=== PATIENT | male | born 1970 | race Caucasian/White ===

== ENCOUNTER 2017-04-05 10:14 | Emergency (ER) | payer BC ==
[2017-04-05 10:43] LABS: Hematocrit 41.5 % (42.0-52.0); Hemoglobin 14.3 gm/dL (13.5-18.0); Mean Cell Volume 95.8 fl (78-100); Mean Corpuscular Hgb Conc 34.5 g/dl (32-36); Mean Platelet Volume 9.9 fl (6.0-9.5); Neutrophil # 7.1 K/mm3 (1.3-6.0); Neutrophil % 71.6 % (42-75.0); Platelet Count 276 K/mm3 (150-450); Red Blood Count 4.33 M/mm3 (4.7-6.0); Red Cell Distribution Width 12.8 % (11.5-14.0); White Blood Count 9.9 K/mm3 (4.0-10.5)
[2017-04-05 10:55] LABS: Albumin * 3.9 gm/dl (3.4-5.0); Anion Gap 13.9 mmol/L (6.8-13.8); BUN/Creatinine Ratio 8.2 (9.0-21.6); Ca. Corrected For Albumin 8.9 mg/dL (8.4-10.2); Calcium * 9.1 mg/dL (7.9-10.9); Carbon Dioxide 26.1 mmol/L (24-32.6)
--- NOTE | 2017-04-05 11:06 | ERNOTE ---
Medical Problem HPI - General Chief Complaint: General Assessment Time Seen by Provider: 04/05/17 10:36 Source: patient Exam Limitations: no limitations - Immun/Allergies/Home Medications Immunizations: IMMUNIZATION HX History of Influenza Vaccine Yes Hx Pneumococcal Vaccination No Allergies/Adverse Reactions: Allergies Sulfa (Sulfonamide Antibiotics) Allergy (Intermediate, Verified 04/05/17 10:24) Other "feels weird" penicillin V potassium [From Pen-Vee K] Allergy (Mild, Verified 04/05/17 10:24) Other unsure Home Medications: HOME MEDICATIONS EPINEPHrine [Epipen 2-Tera] 0.3 mg IM ONCE PRN 11/11/15 [Last Taken Unknown] Pantoprazole Sodium [Protonix] 40 mg PO DAILY 11/11/15 [Last Taken Unknown] - History of Present History Narrative: Patient has had decreased sensation in his left face and arm for about three weeks. First the symptoms were intermittent lasting for a few hours every day. They have been constant over the last three days. He describes tingling and decreased sensation, no motor deficit, mild headache today, no recent trauma, remote head injury in 2012. Over the last few months he has cut down his drinking form 90beer per week to 2-3 per night and more on the weekend, cut down his smoking form two to one pack/day, has not been on hard drugs for a long time, used THC four days ago Review of Systems - Review of Systems Constitutional: Absent: recent illness, fever EYE: Present: blurred vision. Absent: double vision, vision changes Respiratory: Absent: shortness of breath, cough Cardiology: Absent: chest pain, palpitations Gastrointestinal/Abdominal: Absent: nausea, vomiting Genitourinary: Absent: frequency Musculoskeletal: Absent: neck pain Skin: Absent: rash Neurological: Present: See HPI, tingling - Patient's Past Medical History Patient History - Medical: GERD, Other Patient History - Cardiac/Respiratory: No pertinent hx Patient History - Cancer: No Hx of Cancer Patient History - Surgical Procedures: Appendectomy, Cholecystectomy, EGD, Other Patient History - Other: None - Family History Father Family History - Medical: Diabetes Type 2 Family History - Cardiac/Respiratory: Hypertension, Hyperlipidemia Grandfather-Maternal Family History - Medical: , No pertinent hx Family History - Cardiac/Respiratory: No pertinent hx Grandfather-Paternal Family History - Medical: , No pertinent hx Family History - Cardiac/Respiratory: Other Grandmother-Maternal Family History - Medical: , Diabetes Type 2 Family History - Cardiac/Respiratory: CVA/Stroke, Hypertension Grandmother-Paternal Family History - Medical: , Dementia Family History - Cardiac/Respiratory: No pertinent hx Mother Family History - Medical: No pertinent hx Family History - Cardiac/Respiratory: Hypertension - Social History Living Situations: home Abuse History: No History of abuse Psych History: Hx of Anxiety Smoking Status: Current every day smoker Cigarettes Packs Per Day: 1 Alcohol Use: heavy Drug Use: marijuana, other - Immunizations Hx Pneumococcal Vaccination: No History of Influenza Vaccine: Yes Physical Exam - Physical Exam General Appearance: Present: wd/wn, alert, no apparent distress Eye Exam: Normal inspection: bilateral, PERRL: bilateral, EOMI: bilateral Ears, Nose, Throat: Present: normal ENT inspection, normal pharynx Neck: Present: nontender, supple, full range of motion Respiratory: Present: no respiratory distress, normal breath sounds, no accessory muscle use, lungs clear Cardiovascular/Chest: Present: regular rate, rhythm, no murmur Gastrointestinal/Abdominal: Present: normal bowel sounds, nontender, nondistended, soft Extremity Exam: Present: no edema Neurological Exam: Present: alert, oriented, normal mood/affect, no motor/ sensory deficits, 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 - Vital Signs Patient's Vital Signs:: I have reviewed the patient's vital signs. Vital Signs: Vital Signs 04/05/17 04/05/17 10:20 10:34 Temperature 36.9 C Pulse Rate 67 60 Respiratory 12 19 Rate Blood Pressure 146/94 147/88 O2 Sat by Pulse 97 97 Oximetry - EKG EKG: NSR - sinusbradycardia, unchanged from - 02/2015 except rate, other - no acute changes EKG read: Interp. by me - CT/Ultrasound CT/Ultrasound Narrative: CT head: changes in left cerebellar hemisphere - Progress/Reassessment Chief Complaint: General Assessment Progress Note-Subjective: 04/05/17 12:09 discussed test result with patient 04/05/17 12:10 called office for follow up appointment 04/05/17 12:15 discussed with yonis Moscoso to order MRI in her name Departure - Departure Clinical Impression: Paresthesia, Abnormal CT of brain Disposition: Home self-care Condition: Good Instructions: Paresthesia, [id number]-[id number], Form - Excuse from Work, School, or Physical Activity Additional Instructions: follow up for an MRI on the at 08:45 and with Yany Sawyer the next day Referrals: Yany Sawyer, AUDIO/VISUAL OPERATOR [Primary Care Provider] - 04/12/17 2:30 pm
[2017-04-05 12:36] LABS: Cocaine Ur Negative (NEGATIVE); Urine Barbiturate Negative (NEGATIVE); Urine Benzodiazepines Negative (NEGATIVE); Urine Opiates Negative (NEGATIVE); Urine PCP Negative (NEGATIVE); Urine THC Negative (NEGATIVE)
[2017-04-05 12:41] VITALS: BP 119/79
== END 2017-04-05 12:55 | disposition home or self-care (01) ==
LOC: ER 10:14
DX: R20.9 Unspecified disturbances of skin sensation (principal); R94.02 Abnormal brain scan; F17.210 Nicotine dependence, cigarettes, uncomplicated; K21.9 Gastro-esophageal reflux disease without esophagitis

== ENCOUNTER 2017-12-22 10:21 | Emergency (ER) | payer BC ==
[2017-12-22] MEDS ORDERED: NORMAL SALINE 1,000 ML IV ONE ×2 (10:46→12:16)
[2017-12-22] MEDS ORDERED: LORazepam 2 MG/ML DISP.SYRIN IV ONE (10:47)
[2017-12-22] MEDS ORDERED: LORazepam 2 MG/ML DISP.SYRIN ONE (10:58)
[2017-12-22 11:04] LABS: Hemoglobin 14.2 gm/dL (13.5-18.0); Mean Cell Volume 94.8 fl (78-100); Mean Corpuscular Hemoglobin 33.6 pg (27-31); Mean Corpuscular Hgb Conc 35.5 g/dl (32-36); Mean Platelet Volume 10.5 fl (6.0-9.5); Neutrophil # 9.4 K/mm3 (1.3-6.0); Neutrophil % 74.2 % (42-75.0); Platelet Count 253 K/mm3 (150-450); Red Blood Count 4.22 M/mm3 (4.7-6.0); Red Cell Distribution Width 12.3 % (11.5-14.0); White Blood Count 12.6 K/mm3 (4.0-10.5)
[2017-12-22 11:22] LABS: Albumin * 3.5 gm/dl (3.4-5.0); Anion Gap 9.3 mmol/L (6.8-13.8); BUN/Creatinine Ratio 10.5 (9.0-21.6); Bilirubin, Total 0.5 mg/dL (0.0-1.1); CRP 5.9 mg/dL (0.0-0.9); Ca. Corrected For Albumin 8.9 mg/dL (8.4-10.2); Calcium * 8.8 mg/dL (7.9-10.9); Carbon Dioxide 31.4 mmol/L (24-32.6); Potassium 2.7 mmol/L (3.4-4.6); Total Protein 7.4 gm/dL (6.2-8.2); Uric Acid 6.2 mg/dL (2.6-7.2)
[2017-12-22] MEDS ORDERED: KETOROLAC TROMETHAMINE 30 MG/ML VIAL IV ONE (11:30)
[2017-12-22] MEDS ORDERED: KETOROLAC TROMETHAMINE 30 MG/ML VIAL ONE (11:44)
[2017-12-22] MEDS ORDERED: CLINDAMYCIN PHOSPHATE 150 MG/ML VIAL IV ONE (11:45)
[2017-12-22] MEDS: POTASSIUM CHLORIDE IN WATER 100 ML IV SCH ×3 (11:47→13:52)
[2017-12-22 12:28] LABS: Urine Bilirubin Negative (NEGATIVE); Urine Blood Negative /ul (NEGATIVE); Urine Ketone Negative (NEGATIVE); Urine Nitrite Negative (NEGATIVE); Urine Protein Negative (NEGATIVE); Urine Specific Gravity 1.015 SP.GR. (1.005-1.030); Urine Urobilinogen Normal (NORMAL); Urine pH 6.5 pH (5.0-7.0)
[2017-12-22 12:37] LABS: Urine Appearance Clear; Urine Bacteria None Seen; Urine Color Yellow; Urine RBC None Seen /hpf (0-5); Urine WBC None Seen /hpf (0-5)
[2017-12-22] MEDS ORDERED: CLINDAMYCIN PHOSPHATE 600 MG in DEXTROSE 5 % IN WATER 50 ML IV ONE ×2 (13:00)
--- NOTE | 2017-12-22 13:50 | ERNOTE ---
Lower Extremity HPI - Narrative Date of Service: 12/22/17 - General Time Seen by Provider: 12/22/17 10:39 Source: patient Exam Limitations: no limitations - Immun/Allergies/Home Medications Immunizations: IMMUNIZATION HX Immunizations Up to Date No History of Influenza Vaccine No Hx Pneumococcal Vaccination No Allergies/Adverse Reactions: Allergies Allergy/AdvReac Type Severity Reaction Status Date / Time penicillin V potassium Allergy Unknown Verified 12/22/17 10:33 [From Sravan-Maty Kelley] Sulfa (Sulfonamide AdvReac Mild "FEELS Verified 12/22/17 10:33 Antibiotics) WEIRD" Home Medications: HOME MEDICATIONS Pantoprazole Sodium [Protonix] 40 mg PO DAILY 11/11/15 [Last Taken Unknown] Albuterol Sulfate [Proair Hfa] 2 puff IH Q6H PRN 10/03/17 [Last Taken Unknown] Aspirin [Aspirin Enteric Coated] 81 mg PO DAILY 10/03/17 [Last Taken Unknown] Clindamycin HCl [Cleocin HCl] 300 mg PO QID 10 Days #40 capsule 12/22/17 [Last Taken Unknown] Naproxen [Naprosyn] 375 mg PO BID #10 tab 12/22/17 [Last Taken Unknown] Potassium Chloride [K-Dur] 20 meq PO BID #10 tab 12/22/17 [Last Taken Unknown] - History of Present Illness Narrative: Patient presents to the ED for redness and pain bilateral lower extremities. He relates that he had redness around his left eye since monday and this has been better but since monday he has noticed swelling, redness and pain on both of his feet. He relates that he feels dehydrated and hasn't been urinating as much as normal. No CP or SOB. No fever. no ONEILL. No focal N/T/W. No injury. No other joint pains. Never had anything like this before. Has not seen anyone else for this. pain moderate. He tells me he has cut back on his alcohol intake but has not had any vomiting or withdrawal symptoms. Occurred: other - 3 days ago Location of Incident: other - no apparent injury Method of Injury: Reports: no apparent injury Modifying Factors - (Improves): Reports: rest Modifying Factors - (Worsens): Reports: movement Associated Symptoms: Denies: unable to bear weight, weakness, sensory loss, chest pain, vomiting/diarrhea Subsequent Symptoms: Denies: sensory loss, motor loss Prior Treament: Denies: recently seen Review of Systems - Review of Systems Constitutional: Absent: fever EYE: Present: see HPI ENT: Absent: sore throat Respiratory: Absent: shortness of breath Cardiology: Absent: chest pain Gastrointestinal/Abdominal: Absent: abdominal pain Genitourinary: Absent: dysuria Musculoskeletal: Present: See HPI Skin: Present: See HPI Neurological: Absent: weakness - Patient's Past Medical History Patient History - Medical: GERD, Other Patient History - Cardiac/Respiratory: No pertinent hx, COPD Patient History - Cancer: No Hx of Cancer Patient History - Surgical Procedures: Appendectomy, Cholecystectomy, EGD, Hernia Repair Patient History - Other: None - Family History Father Family History - Medical: Diabetes Type 2 Family History - Cardiac/Respiratory: Hypertension, Hyperlipidemia Grandfather-Maternal Family History - Medical: , No pertinent hx Family History - Cardiac/Respiratory: No pertinent hx Grandfather-Paternal Family History - Medical: , No pertinent hx Family History - Cardiac/Respiratory: Other Grandmother-Maternal Family History - Medical: , Diabetes Type 2 Family History - Cardiac/Respiratory: CVA/Stroke, Hypertension Grandmother-Paternal Family History - Medical: , Dementia Family History - Cardiac/Respiratory: No pertinent hx Mother Family History - Medical: No pertinent hx Family History - Cardiac/Respiratory: Hypertension - Social History Living Situations: home Abuse History: No History of abuse Psych History: Hx of Anxiety Smoking Status: Current every day smoker Alcohol Use: heavy Drug Use: none - Immunizations Immunizations Up to Date: No Hx Pneumococcal Vaccination: No History of Influenza Vaccine: No Physical Exam - Physical Exam General Appearance: Present: alert, no apparent distress, other - pleasant, non- toxic, no distress. Well hydrated. Head Exam: Present: normal inspection, no evidence of injury Eye Exam: Normal inspection: bilateral, PERRL: bilateral Ears, Nose, Throat: Present: other - there is skin rednes right zygomatic arch area. This is c/w mild cellulitis. No abscess.. Absent: pharyngeal erythema, pharyngeal swelling, tonsillar swelling, dry mucous membranes Neck: Present: normal inspection, nontender, supple Respiratory: Present: no respiratory distress, normal breath sounds, no accessory muscle use, lungs clear Cardiovascular/Chest: Present: regular rate, rhythm, no murmur, normal peripheral pulses Peripheral Pulses: N=norm/S=strong/W=weak/B=bound/A=absent: Dorsalis-pedis (R): Normal, Dorsalis-pedis (L): Normal Gastrointestinal/Abdominal: Present: normal bowel sounds, nontender, nondistended, soft Back Exam: Present: normal range of motion, no CVA tenderness Extremity Exam: Present: other - He has mild swellign bilateral dorsum of feet with warmth and redness here bilaterally. No lymphangitis. No blistering. This does not localize to a single joint ans is primary dorsum of foot, not over the ankle. No suggestion of actual ankle joint swelling or involvement. Sx symmetric and bilateral. No calf tendenrss. No knee redness/swelling or warmth. No hip tenderness. There is no suggestion of DVT, septic arthritis or nec fasc. Neurological Exam: Present: alert, normal mood/affect, no motor/sensory deficits Skin Exam: Present: normal color, warm/dry, other - apparent bilateral cellulitis dorsum of feet and right cheek area. ED Progress - Results and Orders Patient's Lab Results:: I have reviewed the patient's lab results. - Vital Signs Patient's Vital Signs:: I have reviewed the patient's vital signs. Vital Signs: Vital Signs 12/22/17 12/22/17 12/22/17 10:27 11:27 12:21 Temperature 36.4 C L 36.6 C 36.8 C Pulse Rate 80 75 76 Respiratory 15 16 15 Rate Blood Pressure 126/83 132/80 118/91 O2 Sat by Pulse 99 99 99 Oximetry 12/22/17 12/22/17 12:55 13:18 Temperature 36.6 C Pulse Rate 67 55 L Respiratory 16 14 Rate Blood Pressure 125/77 131/78 O2 Sat by Pulse 99 97 Oximetry - Progress/Reassessment Chief Complaint: Lower Extremity Pain/ Injury Progress Note-Subjective: 12/22/17 13:46 I offered the patient observation but he declines this and wishes to go home. At this time there is nothign to suggest sepsis, toxicity, DVT, vascular or neuro deficit, nec fasc, septic arthritis or other clear acute life or limb threat. This vazquez no localize to the joint. No injury, so I do not feel imaging otherwise indicated. He is stable and improved here, requesting to go home. I made him an appointment to see his PCP monday in follow-up. I discussed warning signs and reasons to return as well as the need for close f/u. Departure Clinical Impression: Cellulitis, Hypokalemia - Departure Disposition: Home self-care Condition: Stable Instructions: Cellulitis, Adult, [id number], Hypokalemia Additional Instructions: Rest. Fluids. Antibiotics and potassium pills as directed. You have an appointment Monday at 10:45 with Yany Sawyer for a re-check. Return here sooner if you change your mind about observation, develop a fever, increased redness or swelling or if your condition worsens or changes in any way. Referrals: Yany Sawyer, [employer] DIRECTOR [Primary Care Provider] - Prescriptions: Clindamycin HCl [Cleocin HCl] 300 mg PO QID 10 Days #40 capsule Naproxen [Naprosyn] 375 mg PO BID #10 tab Potassium Chloride [K-Dur] 20 meq PO BID #10 tab
[2017-12-22 13:52] VITALS: BP 117/71
== END 2017-12-22 14:30 | disposition home or self-care (01) ==
LOC: ER 10:21
DX: E87.6 Hypokalemia (principal); L03.116 Cellulitis of left lower limb; L03.115 Cellulitis of right lower limb; L03.211 Cellulitis of face; F17.200 Nicotine dependence, unspecified, uncomplicated; J44.9 Chronic obstructive pulmonary disease, unspecified; K21.9 Gastro-esophageal reflux disease without esophagitis
CPT/HCPCS: 36415; 80053; 81001; 84550; 85025; 86140; 87040; 96365; 96367; 96375; 99285; G0481